=== PATIENT | female | born 1995 | race Two or more races ===

== ENCOUNTER 2018-10-12 20:13 | Emergency (ER) | payer BC ==
[~2018-10-12] VITALS: Ht 167.6 cm; Wt 70.8 kg
[~2018-10-12 20:13] MED LIST: LEVAQUIN500 MG ORAL; NAPROSYN500 M1 ORAL; NORCO 5-325 TA1 EACH ORAL
[2018-10-12 20:17] VITALS: BP 132/91
--- NOTE | 2018-10-12 20:34 | Emergency Room Report ---
History of Present Illness General Chief Complaint: Multiple Trauma/Fall Source: Patient Present Illness HPI Patient is a 23-year-old female who presented after nausea. Injury occurred approximately one half hours prior to arrival. Patient denied any vomiting. Patient reports having struck her head on cement. She denied loss of consciousness. Allergies: Coded Allergies: No Known Allergies (Unverified , 10/12/18) Patient History Past Medical History: see triage record Last Menstrual Period: Aug 2018 Reviewed Nursing Documentation: PMH: Agreed; PSxH: Agreed Nursing Documentation-PMH Past Medical History: No Stated History Review of Systems All Other Systems: negative except mentioned in HPI Physical Exam Vital Signs Date Time Temp Pulse Resp B/P (MAP) Pulse Ox O2 Delivery O2 Flow Rate FiO2 10/12/18 20:17 98.8 84 16 132/91 99 Room Air General Appearance: well appearing, no apparent distress, alert, GCS 15, non- toxic Head: normocephalic, atraumatic ENT: hearing grossly normal, normal voice Neck: full range of motion, supple Respiratory: lungs clear, normal breath sounds, no respiratory distress, speaking full sentences Musculoskeletal: no calf tenderness Neurologic: normal gait Psychiatric: mood/affect normal Skin: no rash Medical Decision Making Diagnostic Impression: Primary Impression: Fall Additional Impressions: Head injury Neck muscle spasm ER Course Patient presented for head injury. Differential diagnosis included was not limited to fracture, intracranial hemorrhage, contusion, close head injury among others.Because of complexity of patient's case imaging studies were ordered. The patient was noted to have some nausea without vomiting. The neuro exam is otherwise nonfocal.Urine test was noted be positive. CT the head showed no evidence of acute fracture or intracranial hemorrhage. The patient was given oral anti-medic. She is given prescription for Diclegis. 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 Labs Test 10/12/18 20:40 Urine HCG, Qualitative Positive (NEGATIVE) Last Vital Signs Date Time Temp Pulse Resp B/P (MAP) Pulse Ox O2 Delivery O2 Flow Rate FiO2 10/12/18 20:17 98.8 84 16 132/91 99 Room Air Status: improved Disposition: HOME, SELF-CARE Condition: Stable Scripts Doxylamine/Pyridoxine Hcl (DICLEGIS DR 10-10 MG TABLET) 1 Each Tablet.dr 1 EACH PO QHS, #30 TAB Prov: Len Smith MD 10/12/18 Len Smith MD Oct 12, 2018 20:34
[2018-10-12] MEDS ORDERED: Acetaminophen 500mg (ES) tab ORAL ONE (20:45)
[2018-10-12] MEDS ORDERED: NKM (20:46)
[2018-10-12] MEDS ORDERED: ZOFRAN4 MG ORAL (20:49)
[2018-10-12] MEDS ORDERED: DICLEGIS DR 101 EACH PO (21:40)
[2018-10-12 21:47] VITALS: BP 132/91
--- NOTE | 2018-10-13 09:56 | Diagnostic Imaging Report ---
Indication: Headache Technique: Contiguous 5 mm thick transaxial imaging of the head obtained in a Siemens Sensation [address] scanner. Soft tissue and bone windows generated. Automatic Exposure Control was utilized. Total Dose length Product (DLP): 1354.[address] Dose Index Volume (CTDIvol): 70.38 mGy Comparison: none Findings: The size and configuration of the cortical sulci, basal cisterns, and ventricles are within normal limits for age. There is no mass effect, midline shift, or edema identified. There is no evidence of acute hemorrhage or abnormal intra-axial or extra-axial fluid collections. The bones and soft tissues are unremarkable. Impression: No mass effect, edema or acute bleed. [facility] has communicated the preliminary results to the Emergency Department. Their findings are largely concordant with this report. The CT scanner at [facility] is accredited by the [employer] and the scans are performed using dose optimization techniques as appropriate to a performed exam including Automatic Exposure control.
== END 2018-10-12 21:45 | disposition home or self-care (01) ==
LOC: EMR 20:38
DX: S09.90XA Unspecified injury of head, initial encounter (principal); W19.XXXA Unspecified fall, initial encounter; Y92.9 Unspecified place or not applicable; M62.838 Other muscle spasm
CPT/HCPCS: 70450; 81025; 99283